=== PATIENT | male | born 1960 | race African-American/Black ===

== ENCOUNTER 2016-11-01 13:07 | Inpatient (IN) | payer OTHER ==
[2016-11-01 13:57] VITALS: BMI 26.6
--- NOTE | 2016-11-01 14:37 | HP ---
COWS - Scale Resting Pulse: 0= CO 80 or Below Sweatin=Flushed/Facial Moisture Restless Observation: 1= Difficult to Sit Still Pupil Size: 0= Normal to Room Light Bone or Joint Aches: 2= Severe Diffuse Aches Runny Nose/ Eye Tearin= Runny Nose/Eyes GI Upset > 30mins: 2= Nausea/Diarrhea Tremor Observation: 2= Slight Tremor Visible Yawning Observation: 2= >3x During Session Anxiety or Irritability: 2=Irritable/Anxious Goose Flesh Skin: 3=Piloerection COWS Score: 18 CIWA Score - CIWA Score Nausea/Vomitin-Mild Nausea/No Vomiting Muscle Tremors: 4-Moderate,w/Arms Extend Anxiety: 4-Mod. Anxious/Guarded Agitation: 4-Moderately Restless Paroxysmal Sweats: 3 Orientation: 0-Oriented Tacttile Disturbances: 0-None Auditory Disturbances: 0-None Visual Disturbances: 0-None Headache: 1-Very Mild CIWA-Ar Total Score: 17 Admission ROS BHS - HPI Chief Complaint: i need to stop so I can get cleaned. Allergies/Adverse Reactions: Allergies Allergy/AdvReac Type Severity Reaction Status Date / Time No Known Allergies Allergy Verified 11/01/16 14:27 History of Present Illness: pt is a 56yr old male with a history of heroin and xanax dependence seeking detox for treatment. Exam Limitations: No Limitations - Ebola screening Have you traveled outside of the country in the last 21 days: No Have you had contact with anyone from an Ebola affected area: No Have you been sick,other than usual withdrawal symptoms: No Do you have a fever: No - Review of Systems Constitutional: Chills, Diaphoresis, Loss of Appetite, Night Sweats, Changes in sleep, Unintentional Wgt. Loss EENT: reports: Tearing, Nose Congestion Respiratory: reports: No Symptoms reported Cardiac: reports: No Symptoms Reported, Palpitations (seldom not right now), Other (murmur and gallop since childhood) GI: reports: Poor Appetite, Poor Fluid Intake : reports: No Symptoms Reported Musculoskeletal: reports: Back Pain, Joint Pain Integumentary: reports: Flushing, Sweating Neuro: reports: Headache, Tingling, Tremors Endocrine: reports: Excessive Sweating, Flushing, Intolerance to Cold, Intolerance to Heat Hematology: reports: No Symptoms Reported Psychiatric: reports: Judgement Intact, Mood/Affect Appropiate, Orientated x3, Agitated, Anxious Other Systems: Reviewed and Negative Patient History - Patient Medical History Hx Anemia: No Hx Asthma: No Hx Chronic Obstructive Pulmonary Disease (COPD): No Hx Cancer: No Hx Cardiac Disorders: Yes (murmur) Hx Congestive Heart Failure: No Hx Hypertension: No Hx Hypercholesterolemia: No Hx Pacemaker: No HX Cerebrovascular Accident: No Hx Seizures: No Hx Dementia: No Hx Diabetes: No Hx Gastrointestinal Disorders: No Hx Liver Disease: No Hx Genitourinary Disorders: No Hx Sexually Transmitted Disorders: No Hx Renal Disease (ESRD): No Hx Thyroid Disease: No Hx Human Immunodeficiency Virus (HIV): No (negative) Hx Hepatitis C: No (negative) Hx Depression: No Hx Suicide Attempt: No (denies) Hx Bipolar Disorder: No Hx Schizophrenia: No - Patient Surgical History Past Surgical History: No - PPD History Previous Implant?: Yes Documented Results: Negative w/proof Implanted On Prior [facility] Admission?: Yes Date: 08/22/16 Results: 0 mm PPD to be Administered?: No - Reproductive History Patient is a Female of Child Bearing Age (11 -55 yrs old): No - Smoking Cessation Smoking history: Current every day smoker Have you smoked in the past 12 months: Yes Aproximately how many cigarettes per day: 5 Cigars Per Day: 0 Hx Chewing Tobacco Use: No Initiated information on smoking cessation: Yes 'Breaking Loose' booklet given: 11/01/16 - Substance & Tx. History Hx Alcohol Use: No Hx Substance Use: Yes Substance Use Type: Heroin Hx Substance Use Treatment: Yes - Substances Abused Heroin Route: Inhalation Frequency: Daily Amount used: 10 bags Age of first use: 44 Date of Last Use: 11/01/16 Alprazolam (Xanax) Route: Oral Frequency: Daily Amount used: 4mg Age of first use: 44 Date of Last Use: 10/30/16 Family Disease History - Family Disease History Family Disease History: Heart Disease: Father Admission Physical Exam BHS - Vital Signs Vital Signs: Vital Signs - 24 hr 11/01/16 13:54 Temperature 96.2 F L Pulse Rate 73 Respiratory 20 Rate Blood Pressure 129/87 - Physical General Appearance: Yes: Appropriately Dressed, Moderate Distress, Tremorous, Irritable, Sweating, Anxious HEENTM: Yes: Normal Voice, Nasal Congestion, Rhinorrhea Respiratory: Yes: Lungs Clear, Normal Breath Sounds, No Respiratory Distress Neck: Yes: No masses,lesions,Nodules Breast: Yes: Within Normal Limits Cardiology: Yes: Gallop/S4 Abdominal: Yes: Normal Bowel Sounds, Non Tender, Soft Genitourinary: Yes: Within Normal Limits Back: Yes: Normal Inspection Musculoskeletal: Yes: full range of Motion, Gait Steady Extremities: Yes: Normal Capillary Refill, Normal Inspection, Non-Tender, Tremors Neurological: Yes: Fully Oriented, Alert, Normal Response Integumentary: Yes: Normal Color, Diaphoresis Lymphatic: Yes: Within Normal Limits - Diagnostic (1) Nicotine dependence Current Visit: Yes Status: Chronic Qualifiers: Nicotine product type: cigarettes Substance use status: uncomplicated Qualified Code(s): F17.210 - Nicotine dependence, cigarettes, uncomplicated (2) Opioid dependence with withdrawal Current Visit: Yes Status: Chronic (3) Sedative, hypnotic or anxiolytic dependence with withdrawal, uncomplicated Current Visit: Yes Status: Chronic (4) Gallop rhythm Current Visit: Yes Status: Chronic Cleared for Admission [facility] - Detox or Rehab [facility] Level of Care: Medically Managed Detox Regimen/Protocol: Methadone/Valium [facility] Breath Alcohol Content Breath Alcohol Content: 0 Urine Drug Screen - Results Drug Screen Negative: No Urine Drug Screen Results: OPI-Opiates, BZO-Benzodiazepines
[2016-11-01] MEDS ORDERED: LOPERAMIDE HCL 2 MG CAPSULE PO PRN (14:44)
[2016-11-01] MEDS ORDERED: NICOTINE POLACRILEX 2 MG GUM BC PRN (14:44)
[2016-11-01] MEDS ORDERED: MENTHOL/PHENOL 1 EACH UD MM PRN (14:44)
[2016-11-01] MEDS ORDERED: guaiFENesin/D-METHORPHAN HB 10 ML UNIT-DOSE CUPS PO PRN (14:44)
[2016-11-01] MEDS ORDERED: MAG HYDROX/AL HYDROX/SIMETH 30 ML UNIT-DOSE CUP PO PRN (14:44)
[2016-11-01] MEDS ORDERED: P-EPHED 60MG/TRIPROLIDI 2.5MG TABLET PO PRN (14:44)
[2016-11-01] MEDS ORDERED: MAGNESIUM CITRATE 300 ML BOTTLE PO PRN (14:44)
[2016-11-01] MEDS ORDERED: hydrOXYzine PAMOATE 50 MG CAPSULE (FP) PO PRN (14:44)
[2016-11-01] MEDS ORDERED: MAGNESIUM HYDROX 2400MG/30ML ORAL SUSPENSION 30 ML CUP PO PRN (14:44)
[2016-11-01] MEDS ORDERED: ACETAMINOPHEN 325 MG TABLET (FP) PO PRN (14:44)
[2016-11-01] MEDS ORDERED: IBUPROFEN 400 MG TABLET (FP) PO PRN (14:44)
[2016-11-01] MEDS ORDERED: diazePAM 5 MG TABLET PO ONE (17:30)
[2016-11-01] MEDS ORDERED: METHADONE HCL 10 MG TABLET (FOR DETOX USE ONLY) PO ONE ×2 (17:30→23:00)
[2016-11-01] MEDS: diazePAM 5 MG TABLET PO SCH ×2 (17:50→22:18)
[2016-11-01] MEDS: diphenhydrAMINE HCL 50 MG CAPSULE PO PRN (22:18)
[2016-11-01] MEDS: THIAMINE HCL 100 MG TABLET (FP) PO SCH (22:18)
[2016-11-02 01:19] LABS: URINE APPEARANCE CLEAR; URINE BILIRUBIN NEGATIVE (NEGATIVE); URINE COLOR LTYELLOW; URINE GLUCOSE (UA) NEGATIVE (NEGATIVE); URINE KETONE NEGATIVE (NEGATIVE); URINE LEUK ESTERASE NEGATIVE (NEGATIVE); URINE NITRITE NEGATIVE (NEGATIVE); URINE UROBILINOGEN NEGATIVE E.U./dl (0.2-1.0)
[2016-11-02 01:24] LABS: URINE BLOOD 1+ (NEGATIVE); URINE PROTEIN 2+ (NEGATIVE)
[2016-11-02 01:27] LABS: URINE HYALINE CAST 1 /lpf; URINE MUCUS RARE; URINE RBC 1 /hpf (0-3); URINE WBC <1 /hpf (3-5)
[2016-11-02] MEDS: diazePAM 5 MG TABLET PO SCH ×3 (05:49→22:22)
--- NOTE | 2016-11-02 09:33 | EKG ---
Test Reason : Blood Pressure : / mmHG Vent. Rate : 059 BPM Atrial Rate : 059 BPM P-R Int : 176 ms QRS Dur : 080 ms QT Int : 450 ms P-R-T Axes : 077 046 220 degrees QTc Int : 445 ms SINUS BRADYCARDIA BIATRIAL ENLARGEMENT LEFT VENTRICULAR HYPERTROPHY WITH REPOLARIZATION ABNORMALITY MARKED T WAVE ABNORMALITY, CONSIDER LATERAL ISCHEMIA ABNORMAL ECG NO PREVIOUS ECGS AVAILABLE Confirmed by ANGELICA DE LA GARZA MD ([id number]) on 11/02/2016 9:33:29 AM Referred By: Confirmed By:ANGELICA DE LA GARZA MD
[2016-11-02] MEDS ORDERED: METHADONE HCL 10 MG TABLET (FOR DETOX USE ONLY) PO SCH (10:00)
[2016-11-02] MEDS: diazePAM 5 MG TABLET PO PRN ×2 (10:11→16:28)
[2016-11-02] MEDS: PRENATAL VITAMINS W/ FOLIC ACID TABLET (FP) PO SCH (10:11)
[2016-11-02 10:35] LABS: MCH 30.7 pg (25.7-33.7); MCHC 33.6 g/dl (32.0-35.9); MEAN CELL VOLUME 91.4 fl (80-96); MEAN PLT VOLUME 9.8 fl (7.5-11.1); PLATELET COUNT 225 K/MM3 (134-434); RDW 13.7 % (11.9-15.9); WHITE BLOOD COUNT 7.2 K/mm3 (4.0-10.0)
[2016-11-02 11:52] LABS: ALBUMIN 4.6 g/dl (3.4-5.0); ALK PHOS 126 U/L (45-117); ANION GAP 11 (8-16); BILIRUBIN,TOTAL 0.5 mg/dL (0.2-1.0); CALCIUM 9.8 mg/dL (8.5-10.1); CO2 27 mmol/L (21-32); GLUCOSE,RANDOM 136 mg/dL (74-106); SGOT/AST 26 U/L (15-37); SGPT/ALT 47 U/L (12-78); TOT PROT 8.7 g/dl (6.4-8.2)
--- NOTE | 2016-11-02 12:07 | PN ---
S CIWA - CIWA Score Nausea/Vomitin Muscle Tremors: 4-Moderate,w/Arms Extend Anxiety: 4-Mod. Anxious/Guarded Agitation: 4-Moderately Restless Paroxysmal Sweats: 3 Orientation: 0-Oriented Tacttile Disturbances: 1-Very Mild Itch/Numbness Auditory Disturbances: 0-None Visual Disturbances: 0-None Headache: 0-None Present CIWA-Ar Total Score: 19 BHS COWS - Scale Resting Pulse: 0= [place] 80 or Below Sweatin= Chills/Flushing Restless Observation: 1= Difficult to Sit Still Pupil Size: 1= Pupils >than Normal Bone or Joint Aches: 1= Mild Discomfort Runny Nose/ Eye Tearin= Nasal Congestion GI Upset > 30mins: 2= Nausea/Diarrhea Tremor Observation of Outstretched Hands: 2= Slight Tremor Visible Yawning Observation: 1= 1-2x During Session Anxiety or Irritability: 2=Irritable/Anxious Goose Flesh Skin: 3=Piloerection COWS Score: 15 S Progress Note (SOAP) Subjective: nausea, sweats, interrupted sleep, anxiety, tremors Objective: 11/02/16 12:06 Vital Signs - 8 hr 11/02/16 11/02/16 06:00 10:25 Temperature 97.5 F L 97.5 F L Pulse Rate 57 L 65 Respiratory 18 18 Rate Blood Pressure 129/84 141/86 Laboratory Tests 11/02/16 11/02/16 11/02/16 00:45 06:10 06:10 WBC 7.2 RBC 4.91 Hgb 15.1 D Hct 44.9 MCV 91.4 MCHC 33.6 RDW 13.7 Plt Count 225 MPV 9.8 D Sodium 138 Potassium 4.2 Chloride 100 Carbon Dioxide 27 Anion Gap 11 BUN 11 D Creatinine 1.0 Creat Clearance w eGFR > 60 Random Glucose 136 H D Calcium 9.8 Total Bilirubin 0.5 AST 26 ALT 47 D Alkaline Phosphatase 126 H D Total Protein 8.7 H Albumin 4.6 Urine Color Ltyellow Urine Appearance Clear Urine pH 5.0 Ur Specific [place] 1.013 Urine Protein 2+ H Urine Glucose (UA) Negative Urine Ketones Negative Urine Blood 1+ H Urine Nitrite Negative Urine Bilirubin Negative Urine Urobilinogen Negative Ur Leukocyte Esterase Negative Urine RBC 1 Urine WBC <1 Hyaline Casts 1 Urine Mucus Rare Assessment: 11/02/16 12:06 withdrawal sx Plan: cont detox
[2016-11-02] MEDS: diphenhydrAMINE HCL 50 MG CAPSULE PO PRN (22:21)
[2016-11-02] MEDS: THIAMINE HCL 100 MG TABLET (FP) PO SCH (22:22)
[2016-11-03] MEDS: diazePAM 5 MG TABLET PO SCH ×2 (10:16→22:15)
[2016-11-03] MEDS: PRENATAL VITAMINS W/ FOLIC ACID TABLET (FP) PO SCH (10:16)
[2016-11-03] MEDS: METHADONE HCL 5 MG TABLET (FOR DETOX USE ONLY) PO SCH (10:16)
--- NOTE | 2016-11-03 14:40 | PN ---
[facility] CIWA - CIWA Score Nausea/Vomitin-No Nausea/No Vomiting Muscle Tremors: 3 Anxiety: 4-Mod. Anxious/Guarded Agitation: 4-Moderately Restless Paroxysmal Sweats: 3 Orientation: 0-Oriented Tacttile Disturbances: 0-None Auditory Disturbances: 0-None Visual Disturbances: 0-None Headache: 0-None Present CIWA-Ar Total Score: 14 BHS Progress Note (SOAP) Subjective: ANXIETY,TREMORS,SWEATING,INTERRUPTED SLEEP,RESTLESS. Objective: 11/03/16 14:38 Vital Signs - 8 hr 11/03/16 11/03/16 10:00 14:00 Temperature 99.3 F 97.7 F Pulse Rate 69 65 Respiratory 18 16 Rate Blood Pressure 136/87 126/82 Laboratory Last Values WBC 7.2 K/mm3 (4.0-10.0) 11/02/16 06:10 RBC 4.91 M/mm3 (4.00-5.60) 11/02/16 06:10 Hgb 15.1 GM/dL (11.7-16.9) D 11/02/16 06:10 Hct 44.9 % (35.4-49) 11/02/16 06:10 MCV 91.4 fl (80-96) 11/02/16 06:10 MCHC 33.6 g/dl (32.0-35.9) 11/02/16 06:10 RDW 13.7 % (11.9-15.9) 11/02/16 06:10 Plt Count 225 K/MM3 (134-434) 11/02/16 06:10 MPV 9.8 fl (7.5-11.1) D 11/02/16 06:10 Sodium 138 mmol/L (136-145) 11/02/16 06:10 Potassium 4.2 mmol/L (3.5-5.1) 11/02/16 06:10 Chloride 100 mmol/L (98-107) 11/02/16 06:10 Carbon Dioxide 27 mmol/L (21-32) 11/02/16 06:10 Anion Gap 11 (8-16) 11/02/16 06:10 BUN 11 mg/dL (7-18) D 11/02/16 06:10 Creatinine 1.0 mg/dL (0.7-1.3) 11/02/16 06:10 Creat Clearance w eGFR > 60 (>60) 11/02/16 06:10 Random Glucose 136 mg/dL (74-106) H D 11/02/16 06:10 Calcium 9.8 mg/dL (8.5-10.1) 11/02/16 06:10 Total Bilirubin 0.5 mg/dL (0.2-1.0) 11/02/16 06:10 AST 26 U/L (15-37) 11/02/16 06:10 ALT 47 U/L (12-78) D 11/02/16 06:10 Alkaline Phosphatase 126 U/L (45-117) H D 11/02/16 06:10 Total Protein 8.7 g/dl (6.4-8.2) H 11/02/16 06:10 Albumin 4.6 g/dl (3.4-5.0) 11/02/16 06:10 Urine Color Ltyellow 11/02/16 00:45 Urine Appearance Clear 11/02/16 00:45 Urine pH 5.0 (5.0-8.0) 11/02/16 00:45 Ur Specific [place] 1.013 (1.001-1.035) 11/02/16 00:45 Urine Protein 2+ (NEGATIVE) H 11/02/16 00:45 Urine Glucose (UA) Negative (NEGATIVE) 11/02/16 00:45 Urine Ketones Negative (NEGATIVE) 11/02/16 00:45 Urine Blood 1+ (NEGATIVE) H 11/02/16 00:45 Urine Nitrite Negative (NEGATIVE) 11/02/16 00:45 Urine Bilirubin Negative (NEGATIVE) 11/02/16 00:45 Urine Urobilinogen Negative E.U./dl (0.2-1.0) 11/02/16 00:45 Ur Leukocyte Esterase Negative (NEGATIVE) 11/02/16 00:45 Urine RBC 1 /hpf (0-3) 11/02/16 00:45 Urine WBC <1 /hpf (3-5) 11/02/16 00:45 Hyaline Casts 1 /lpf 11/02/16 00:45 Urine Mucus Rare 11/02/16 00:45 RPR Titer Nonreactive (NONREACTIVE) 11/02/16 06:10 LABS NOTED Assessment: 11/03/16 14:39 WITHDRAWAL SX. Plan: CONTINUE DETOX
[2016-11-03] MEDS: diazePAM 5 MG TABLET PO PRN (16:58)
[2016-11-03] MEDS: diphenhydrAMINE HCL 50 MG CAPSULE PO PRN (22:14)
[2016-11-03] MEDS: THIAMINE HCL 100 MG TABLET (FP) PO SCH (22:14)
[2016-11-04] MEDS: diazePAM 5 MG TABLET PO SCH ×2 (10:13→22:23)
[2016-11-04] MEDS: PRENATAL VITAMINS W/ FOLIC ACID TABLET (FP) PO SCH (10:13)
[2016-11-04] MEDS: METHADONE HCL 5 MG TABLET (FOR DETOX USE ONLY) PO SCH (10:13)
--- NOTE | 2016-11-04 10:57 | PN ---
BHS Progress Note (SOAP) Subjective: [place], sweats, interrupted sleep, anxiety, tremor Objective: 11/04/16 10:56 Vital Signs - 8 hr 11/04/16 11/04/16 11/04/16 03:30 05:01 10:18 Temperature 96.4 F L 98.1 F Pulse Rate 42 L 66 Respiratory 18 18 20 Rate Blood Pressure 110/67 117/77 Laboratory Tests 11/02/16 11/02/16 11/02/16 00:45 06:10 06:10 WBC 7.2 RBC 4.91 Hgb 15.1 D Hct 44.9 MCV 91.4 MCHC 33.6 RDW 13.7 Plt Count 225 MPV 9.8 D Sodium 138 Potassium 4.2 Chloride 100 Carbon Dioxide 27 Anion Gap 11 BUN 11 D Creatinine 1.0 Creat Clearance w eGFR > 60 Random Glucose 136 H D Calcium 9.8 Total Bilirubin 0.5 AST 26 ALT 47 D Alkaline Phosphatase 126 H D Total Protein 8.7 H Albumin 4.6 Urine Color Ltyellow Urine Appearance Clear Urine pH 5.0 Ur Specific [place] 1.013 Urine Protein 2+ H Urine Glucose (UA) Negative Urine Ketones Negative Urine Blood 1+ H Urine Nitrite Negative Urine Bilirubin Negative Urine Urobilinogen Negative Ur Leukocyte Esterase Negative Urine RBC 1 Urine WBC <1 Hyaline Casts 1 Urine Mucus Rare RPR Titer 11/02/16 06:10 WBC RBC Hgb Hct MCV MCHC RDW Plt Count MPV Sodium Potassium Chloride Carbon Dioxide Anion Gap BUN Creatinine Creat Clearance w eGFR Random Glucose Calcium Total Bilirubin AST ALT Alkaline Phosphatase Total Protein Albumin Urine Color Urine Appearance Urine pH Ur Specific [place] Urine Protein Urine Glucose (UA) Urine Ketones Urine Blood Urine Nitrite Urine Bilirubin Urine Urobilinogen Ur Leukocyte Esterase Urine RBC Urine WBC Hyaline Casts Urine Mucus RPR Titer Nonreactive Assessment: 11/04/16 10:57 withdrawal sx Plan: cont detox, fluids
[2016-11-04] MEDS: diazePAM 5 MG TABLET PO PRN (12:34)
[2016-11-04] MEDS: diphenhydrAMINE HCL 50 MG CAPSULE PO PRN (22:22)
[2016-11-04] MEDS: THIAMINE HCL 100 MG TABLET (FP) PO SCH (22:22)
[2016-11-05] MEDS ORDERED: diazePAM 5 MG TABLET PO SCH (10:00)
[2016-11-05] MEDS ORDERED: METHADONE HCL 10 MG TABLET (FOR DETOX USE ONLY) PO SCH (10:00)
--- NOTE | 2016-11-05 10:11 | PN ---
BHS Progress Note (SOAP) Subjective: feeling better little sweats Objective: 11/05/16 10:10 Vital Signs Temperature 99 F 11/05/16 09:34 Pulse Rate 65 11/05/16 09:34 Respiratory Rate 18 11/05/16 09:34 Blood Pressure 110/70 11/05/16 09:34 O2 Sat by Pulse Oximetry (%) awake/alert ambulating no acute distress Assessment: 11/05/16 10:10 mild withdrawal sx Plan: continue detox increase fluids d/c in am
[2016-11-05] MEDS: PRENATAL VITAMINS W/ FOLIC ACID TABLET (FP) PO SCH (10:22)
[2016-11-05] MEDS: diphenhydrAMINE HCL 50 MG CAPSULE PO PRN (22:26)
[2016-11-05] MEDS: THIAMINE HCL 100 MG TABLET (FP) PO SCH (22:26)
[2016-11-06] MEDS ORDERED: METHADONE HCL 5 MG TABLET (FOR DETOX USE ONLY) PO SCH (06:00)
--- NOTE | 2016-11-06 08:41 | DS ---
[facility] Detox Discharge Summary Admission Date: 11/01/16 Discharge Date: 11/06/16 - History Present History: Opioid Dependence, Sedative Dependence - Physical Exam Results Vital Signs: Vital Signs Temperature 97.3 F L 11/06/16 06:29 Pulse Rate 53 L 11/06/16 06:29 Respiratory Rate 18 11/06/16 06:29 Blood Pressure 111/62 11/06/16 06:29 O2 Sat by Pulse Oximetry (%) - Treatment Hospital Course: Detox Protocol Followed, Detoxed Safely, Responded well, Discharged Condition Good, Rehab Referral Accepted - Medication Discharge Medications: Ambulatory Orders NK [No Known Home Medication] 08/20/16 - Diagnosis (1) Nicotine dependence Current Visit: Yes Status: Chronic Qualifiers: Nicotine product type: cigarettes Substance use status: uncomplicated Qualified Code(s): F17.210 - Nicotine dependence, cigarettes, uncomplicated (2) Opioid dependence with withdrawal Current Visit: Yes Status: Chronic (3) Sedative, hypnotic or anxiolytic dependence with withdrawal, uncomplicated Current Visit: Yes Status: Chronic (4) Gallop rhythm Current Visit: Yes Status: Chronic - AMA Did Patient Leave Against Medical Advice: No
[2016-11-06 09:59] VITALS: BP 124/78; PULSE 71; TEMP 98.4
[2016-11-06] MEDS: PRENATAL VITAMINS W/ FOLIC ACID TABLET (FP) PO SCH (10:21)
== END 2016-11-06 11:21 | disposition home or self-care (01) | DRG 773 ==
LOC: YASAS 13:07 → Y6N 16:15
PROVIDERS: ADMIT Internal Medicine; ATTEND Internal Medicine
PROC: HZ2ZZZZ Detoxification Services for Substance Abuse Treatment (ICD-10-PCS; principal; 2016-11-06)
DX: F11.23 Opioid dependence with withdrawal (principal); F13.230 Sedative, hypnotic or anxiolytic dependence with withdrawal, uncomplicated; F17.210 Nicotine dependence, cigarettes, uncomplicated; R00.8 Other abnormalities of heart beat
CPT/HCPCS: 36415; 80053; 81003; 81015; 85027; 86593; 93005; 93010